=== PATIENT | male | born 1980 | race Two or more races ===

== ENCOUNTER 2022-09-15 13:40 | Emergency (ER) | payer SELFPAY ==
[2022-09-15 13:52] VITALS: BP 143/82; PULSE 81; RESP 18; TEMP 98.1; BMI 38.2
[2022-09-15] MEDS ORDERED: LIDOCAINE 2.5%/PRILOCAINE 2.5% (5 Gram/TUBE) TP ONE ×2 (14:26→14:33)
== END 2022-09-15 14:43 | disposition home or self-care (01) ==
LOC: JERFT 13:40
DX: K64.9 Unspecified hemorrhoids (principal)
CPT/HCPCS: 99283-25

== ENCOUNTER 2023-06-10 20:45 | Emergency (ER) | payer OTHER ==
[2023-06-10 20:52] VITALS: TEMP 98.7; BMI 35.6
[2023-06-10] MEDS ORDERED: METOCLOPRAMIDE HCL INJECTION 10 MG/2 ML VIAL IVPUSH ONE (21:30)
[2023-06-10] MEDS ORDERED: ACETAMINOPHEN 1000 MG/100 ML BAG IVPB ONE (21:30)
[2023-06-10] MEDS ORDERED: LACTATED RINGERS SOLUTION 1000 ML INFUS.BAG IV ONE (21:30)
[2023-06-10 22:29] LABS: BASO % 0.6 % (0-2.0); EOS % 1.9 % (0-4.5); HEMATOCRIT 45.7 % (35.4-49); HEMOGLOBIN 15.2 GM/dL (11.7-16.9); LYMPH % 43.7 % (8-40); MCH 28.6 pg (25.7-33.7); MCHC 33.3 g/dl (32.0-35.9); MEAN CELL VOLUME 85.8 fl (80-96); MEAN PLT VOLUME 7.6 fl (7.5-11.1); MONO % 9.9 % (3.8-10.2); NEUT % 43.9 % (42.8-82.8); PLATELET COUNT 181 10^3/uL (134-434); RBC 5.33 M/mm3 (4.00-5.60); RDW 15.6 % (11.9-15.9); URINE APPEARANCE CLEAR; URINE BILIRUBIN NEGATIVE (NEGATIVE); URINE COLOR YELLOW; URINE GLUCOSE (UA) NEGATIVE (NEGATIVE); URINE KETONE TRACE (NEGATIVE); URINE LEUK ESTERASE NEGATIVE (NEGATIVE); URINE NITRITE NEGATIVE (NEGATIVE); URINE PROTEIN NEGATIVE (NEGATIVE); WHITE BLOOD COUNT 6.7 K/mm3 (4.0-10.0)
[2023-06-10 22:34] LABS: INR 0.98 (0.83-1.09); PROTHROMBIN TIME (PATIENT) 11.4 SEC (9.7-13.0)
[2023-06-10 22:35] LABS: POTASSIUM 4.1 mmol/L (3.5-5.1)
[2023-06-10 22:37] LABS: ACTIVATED PTT 30.2 SECONDS (25.2-36.5)
[2023-06-10 22:37] LABS: ALBUMIN 3.6 g/dl (3.4-5.0); CALCIUM 8.8 mg/dL (8.5-10.1)
[2023-06-10 22:38] LABS: BLOOD UREA NITROGEN 20.5 mg/dL (7-18); MAGNESIUM 1.9 mg/dL (1.8-2.4)
[2023-06-10 22:40] LABS: CREATININE 1.2 mg/dL (0.55-1.3)
[2023-06-10 22:42] LABS: BILIRUBIN,TOTAL 0.4 mg/dL (0.2-1); TOT PROT 6.9 g/dl (6.4-8.2)
[2023-06-10] MEDS ORDERED: METOCLOPRAMIDE HCL INJECTION 10 MG/2 ML VIAL ONE (22:44)
[2023-06-10] MEDS ORDERED: ACETAMINOPHEN INJECTION 100 ML IVPB ONE (22:44)
[2023-06-10 23:48] VITALS: BP 140/89; PULSE 70; RESP 19
== END 2023-06-10 23:48 | disposition home or self-care (01) ==
LOC: JER 20:45
PROC: 3E033NZ Introduction of Analgesics, Hypnotics, Sedatives into Peripheral Vein, Percutaneous Approach (ICD-10-PCS; principal; 2023-06-10)
PROC: 3E033GC Introduction of Other Therapeutic Substance into Peripheral Vein, Percutaneous Approach (ICD-10-PCS; 2023-06-10)
DX: R07.82 Intercostal pain (principal); M79.602 Pain in left arm; R51.9 Headache, unspecified; Z20.822 Contact with and (suspected) exposure to COVID-19
CPT/HCPCS: 0241U-QW; 36415; 71046-TC-FY; 80053; 81003; 83735; 84443; 84484; 85025; 85610; 85730; 87077; 87086; 93005; 93010; 99285-25